=== PATIENT | male | born 1995 | race Two or more races ===

== ENCOUNTER 2023-12-09 14:59 | Emergency (ER) | payer MEDICAID ==
[~2023-12-09] VITALS: Ht 165.1 cm; Wt 82.1 kg
[2023-12-09 15:26] VITALS: TEMP 98.1
[2023-12-09 19:29] VITALS: BP 140/89; O2SAT 98
== END 2023-12-09 19:30 | disposition home or self-care (01) ==
LOC: ER 15:06
DX: N43.3 Hydrocele, unspecified (principal); I88.0 Nonspecific mesenteric lymphadenitis
CPT/HCPCS: 76870-TC